=== PATIENT | male | born 1950 | race Caucasian/White ===

== ENCOUNTER 2018-01-01 11:53 | Emergency (ER) | payer MEDICARE, MEDICAID ==
[~2018-01-01] VITALS: Ht 193 cm; Wt 109.1 kg
[2018-01-01 12:01] VITALS: Ht 193 cm; Wt 109.1 kg
[2018-01-01] MEDS ORDERED: LISINOPRIL-HCTZ1 TA2 PO (12:04)
[2018-01-01] MEDS ORDERED: PROTONIX40 MG PO (12:04)
[2018-01-01] MEDS ORDERED: BAYER CHEWABLE81 MG PO (12:05)
[2018-01-01] MEDS ORDERED: TEMAZEPAM30 MG PO (12:05)
[2018-01-01] MEDS ORDERED: LIPITOR40 MG PO (12:05)
[2018-01-01] MEDS ORDERED: CENTRUM SILVER1 TA1 PO (12:05)
[2018-01-01 12:23] LABS: BASOPHILS 0.1 % (0-2); HEMATOCRIT 49.5 % (42.0-54.0); HEMOGLOBIN 16.9 g/dL (13.5-17.5); IMMATURE GRANULOCYTES 0.1 % (0-5); LYMPHOCYTES 4.2 % (15-50); MCH 30.4 pg (26.0-34.0); MCHC 34.1 g/dL (31.0-37.0); MEAN PLATELET VOLUME 9.4 fL (7.4-10.4); MONOCYTES 4.8 % (2-11); NEUTROPHILS 89.8 % (40-80); PLATELET COUNT 175 10x3/uL (130-400); RBC 5.56 10x6/uL (4.20-6.10); RDW 13.3 % (11.5-14.5); WBC 10.3 10x3/uL (4.8-10.8)
[2018-01-01 12:44] LABS: APPEARANCE CLEAR (CLEAR); BILIRUBIN NEGATIVE (NEGATIVE); COLOR YELLOW (YELLOW); GLUCOSE NEGATIVE (NEGATIVE); KETONE NEGATIVE (NEGATIVE); NITRITE NEGATIVE (NEGATIVE); PROTEIN NEGATIVE (NEGATIVE); SPECIFIC GRAVITY 1.015 (1.005-1.020)
[2018-01-01 12:44] LABS: ALBUMIN 4.2 g/dL (3.4-5.0); ALKALINE PHOSPHATASE 71 U/L (46-116); ALT (SGPT) 29 U/L (10-68); AMYLASE - SERUM 100 U/L (25-115); BILIRUBIN - DIRECT 0.26 mg/dL (0.00-0.30); BILIRUBIN - INDIRECT 1.07 mg/dL (0.00-1.00); BILIRUBIN - TOTAL 1.33 mg/dL (0.2-1.3); CALC OSMOLALITY 282 mosm/kg (275-300); CALCIUM 8.9 mg/dL (8.5-10.1); CARBON DIOXIDE 31.1 mmol/L (21.0-32.0); CHLORIDE - SERUM 104 mmol/L (98-107); CREATININE - SERUM 0.8 mg/dL (0.6-1.3); GLUCOSE 123 mg/dL (74-106); LIPASE 445 U/L (73-393); POTASSIUM - SERUM 3.9 mmol/L (3.5-5.1); PROTEIN - SERUM 7.9 g/dL (6.4-8.2); SODIUM 139 mmol/L (136-145); UREA NITROGEN 24 mg/dL (7-18); eGFR NON AFRICAN AMERICAN > 90 mL/min (90-120)
[2018-01-01 12:49] LABS: BACTERIA FEW /hpf (NONE SEEN); EPITHELIAL CELLS NSEEN /hpf (0-5); RED CELLS - URINE NONE SEEN /hpf (0-5); WHITE CELLS - URINE 0-5 /hpf (0-5)
[2018-01-01] MEDS ORDERED: ZOFRAN ODT4 MG/UDTAB PO (16:51)
[2018-01-01] MEDS ORDERED: HYDROCODON-ACE1 EAC7 PO (16:51)
[2018-01-01 17:20] VITALS: BP 152/84
== END 2018-01-01 17:20 | disposition home or self-care (01) ==
LOC: D.ER 11:53
PROVIDERS: Family Medicine
DX: R10.9 Unspecified abdominal pain (principal); E80.6 Other disorders of bilirubin metabolism; R74.8 Abnormal levels of other serum enzymes; R11.10 Vomiting, unspecified; I10 Essential (primary) hypertension; K21.9 Gastro-esophageal reflux disease without esophagitis